=== PATIENT | female | born 1935 ===

== ENCOUNTER 2019-01-09 15:10 | Inpatient (IN) | payer MEDICARE, BC ==
[2019-01-09] MEDS ORDERED: LOPERAMIDE 2 MG CAP PO PRN (19:24)
[2019-01-09] MEDS ORDERED: traZODone HCL 50 MG TAB PO PRN (19:32)
[2019-01-09] MEDS ORDERED: tiZANidine 4 MG TAB PO PRN (19:32)
[2019-01-09 20:11] LABS: Basophils % (A) 0 %; Eosinophils # (A) 0.2 k/uL (0-0.7); Eosinophils % (A) 1 %; HCT 38.6 % (34.0-46.0); HGB 12.7 gm/dL (11.4-16.0); Lymphocytes # (A) 2.2 k/uL (1.0-4.8); Lymphocytes % (A) 12 %; MCH 30.3 pg (25.0-35.0); MCHC 32.9 g/dL (31.0-37.0); MCV 91.9 fL (80.0-100.0); Mean Platelet Volume 5.9; Monocytes # (A) 0.5 k/uL (0-1.0); Monocytes % (A) 3 %; Neutrophils # (A) 15.5 k/uL (1.3-7.7); Neutrophils % (A) 84 %; Platelet Count 313 k/uL (150-450); RDW 13.9 % (11.5-15.5); WBC 18.5 k/uL (3.8-10.6)
[2019-01-09 20:16] LABS: INR 0.9 (<1.2); Prothrombin Time 10.2 sec (9.0-12.0)
[2019-01-09 20:17] LABS: Calcium 8.7 mg/dL (8.4-10.2); Potassium 3.8 mmol/L (3.5-5.1)
[2019-01-09] MEDS: METOPROLOL SUCCINATE (ER) 50 MG TAB.ER.24H PO SCH (21:27)
[2019-01-09] MEDS: NIACIN TR 500 MG CAPLET PO SCH (21:27)
[2019-01-09] MEDS: PIPERACILLIN-TAZOBACTAM 3.375 GM in SODIUM CHLORIDE 0.9% 100 ML IVPB SCH (23:49)
[2019-01-10] MEDS: LEVOTHYROXINE 75 MCG TAB PO SCH (05:25)
[2019-01-10] MEDS: amLODIPine 5 MG TAB PO SCH (07:52)
[2019-01-10] MEDS: CYANOCOBALAMIN 500 MCG TAB PO SCH (07:52)
[2019-01-10] MEDS: PANTOPRAZOLE 40 MG TABLET PO SCH (07:52)
[2019-01-10] MEDS: LISINOPRIL 20 MG TAB PO SCH (07:52)
[2019-01-10] MEDS: FENOFIBRATE 54 MG TAB PO SCH (07:53)
[2019-01-10] MEDS: PIPERACILLIN-TAZOBACTAM 3.375 GM in SODIUM CHLORIDE 0.9% 100 ML IVPB SCH ×2 (07:53→16:02)
[2019-01-10 10:26] LABS: Potassium 3.6 mmol/L (3.5-5.1)
[2019-01-10 10:35] LABS: Basophils # (A) 0.1 k/uL (0-0.2); Basophils % (A) 1 %; Eosinophils # (A) 0.3 k/uL (0-0.7); Eosinophils % (A) 3 %; HGB 12.9 gm/dL (11.4-16.0); Hypochromasia Slight; Lymphocytes # (A) 1.9 k/uL (1.0-4.8); Lymphocytes % (A) 18 %; MCH 30.5 pg (25.0-35.0); MCHC 32.2 g/dL (31.0-37.0); MCV 94.6 fL (80.0-100.0); Mean Platelet Volume 6.4; Monocytes # (A) 0.3 k/uL (0-1.0); Monocytes % (A) 3 %; Neutrophils # (A) 8.2 k/uL (1.3-7.7); Neutrophils % (A) 75 %; Platelet Count 365 k/uL (150-450); RBC 4.23 m/uL (3.80-5.40); RDW 13.9 % (11.5-15.5)
[2019-01-10 11:55] VITALS: BMI 32.1
--- NOTE | 2019-01-10 16:54 | P.HPIM ---
History of Present Illness H&P Date: 01/10/19 Chief Complaint: Nausea and vomiting Patient is a 83-year-old female with a known history of hypertension, hyperlipidemia, history of colon cancer status post bowel resection at age 25 in 1994, initially presents to the [facility] with the complaints of nausea vomiting and diarrhea for the past 2 days prior to admission. Patient was also having pain across the upper abdomen. Patient was also feeling dizzy on admission. Patient was recently treated for vertigo with steroid tapering course which she just Finished a day before her symptoms started. Denied any blood in the vomitus. No dark stools. No dysuria or hematuria. No complaints of chest pain or shortness of breath. No headache or dizziness or lightheadedness. Patient had CT of the abdomen and pelvis done at [facility] showed colitis all of the colon and diarrhea. WBC 32.62, lactic acid 3.[address] head showed no acute intracranial process. Patient was eventually transferred to [facility] for further management and GI evaluation. Review of Systems Constitutional: Patient denies any fever or chills . No generalized weakness or weight loss. Abdomen: Patient does have nausea vomiting and abdominal discomfort. Cardiovascular: Patient denies any chest pain or short of breath no palpitations. Respiratory: patient denied any cough is from production. No shortness of breath Neurologic: Patient denied any numbness or tingling headache. Musculoskeletal: Patient denies any complaints of joint swelling or deformity. Skin: Negative Psychiatric: Negative Endocrine: No heat or cold intolerance. No recent weight gain. Genitourinary: No dysuria or hematuria. All other 14 point ROS negative except the above Past Medical History Past Medical History: GERD/Reflux, Hyperlipidemia, Hypertension, Thyroid Disorder Additional Past Medical History / Comment(s): glaucoma, carpal tunnel History of Any Multi-Drug Resistant Organisms: None Reported Past Surgical History: Appendectomy, Cholecystectomy, Tonsillectomy Additional Past Surgical History / Comment(s): pt states she has had half her bowels removed 26 years ago, due to colon cancer, bilateral cataract surgery Past Anesthesia/Blood Transfusion Reactions: No Reported Reaction Past Psychological History: No Psychological Hx Reported Additional Psychological History / Comment(s): since July 2016. Lives independently. No animals in the home. Used to work in retail. No experience, international travel or other travels as this time. 3 adult children who are very involved with her daughter who lives close by. Lifelong nonsmoker no significant alcohol use or recreational drug use. Smoking Status: Never smoker Past Alcohol Use History: None Reported Past Drug Use History: None Reported - Past Family History Mother Family Medical History: Myocardial Infarction ([place]) Father Additional Family Medical History / Comment(s): "old age, fall" Medications and Allergies Home Medications Medication Instructions Recorded Confirmed Type Aspirin [Adult Low Dose Aspirin EC] 81 mg PO DAILY 03/06/17 01/09/19 History Cyanocobalamin (Vitamin B-12) 1,000 mcg PO DAILY 03/06/17 01/09/19 History [Vitamin B-12] Fenofibrate Nanocrystallized 48 mg PO DAILY 03/06/17 01/09/19 History [Tricor] Levothyroxine Sodium [Synthroid] 75 mcg PO DAILY 03/06/17 01/09/19 History Loperamide HCl [Loperamide] 2 mg PO AC-TID 03/06/17 01/09/19 History Multivitamin/Iron/Folic Acid 1 tab PO DAILY 03/06/17 01/09/19 History [Centrum Women Tablet] Niacin 500 mg PO HS 03/06/17 01/09/19 History Omeprazole 20 mg PO DAILY 03/06/17 01/09/19 History C,E,Zinc,Copper 11/Gihxi4u/Lut 1 cap PO DAILY 01/09/19 01/09/19 History [Ocuvite Adult 50 Plus Softgel] Lisinopril 20 mg PO DAILY 01/09/19 01/09/19 History Metoprolol Succinate (ER) [Toprol 50 mg PO DAILY 01/09/19 01/09/19 History Xl] Potassium 99 mg PO DAILY 01/09/19 01/09/19 History Ranitidine HCl [Zantac] 300 mg PO DAILY 01/09/19 01/09/19 History amLODIPine [Norvasc] 5 mg PO DAILY 01/09/19 01/09/19 History tiZANidine [Zanaflex] 2 mg PO TID 01/09/19 01/09/19 History traZODone HCL 50 mg PO HS 01/09/19 01/09/19 History Allergies Allergy/AdvReac Type Severity Reaction Status Date / Time No Known Allergies Allergy Verified 01/09/19 19:53 Physical Exam Vitals: Vital Signs Temp Pulse Resp BP Pulse Ox 01/10/19 04:55 97.9 F 65 16 129/66 96 01/09/19 20:00 97.6 F 76 16 156/72 99 01/09/19 17:45 97.9 F 84 16 155/79 98 Intake and Output 01/09/19 01/10/19 01/10/19 22:59 06:59 14:59 Output Total 1 Balance -1 Output: Stool 1 Other: Voiding Method Toilet Toilet # Voids 1 2 2 # Bowel Movements 1 Weight 72.1 kg PHYSICAL EXAMINATION: Patient is lying in the bed comfortably, no acute distress, awake alert and oriented.. HEENT: Normocephalic. Neck is supple. Pupils reactive. Nostrils clear. Oral cavity is moist. Ears reveal no drainage. Neck reveals no JVD, carotid bruits, or thyromegaly. CHEST EXAMINATION: Trachea is central. Symmetrical expansion. Lung aguero clear to auscultation and percussion. CARDIAC: Normal S1, S2 with no gallops. No murmurs ABDOMEN: Soft. Bowel sounds normal. No organomegaly. No abdominal bruits. Extremities: reveal no edema. No clubbing or cyanosis Neurologically awake, alert, oriented x3 with well-coordinated movements. No focal deficits noted Skin: No rash or skin lesions. Psychiatric: Coperative. Nonsuicidal Musculoskeletal: No joint swelling or deformity. Normal range of motion. Results CBC & Chem 7: 01/10/19 09:18 01/10/19 09:18 Labs: Abnormal Lab Results - Last 24 Hours (Table) 01/09/19 01/10/19 01/10/19 Range/Units 19:46 09:18 09:18 WBC 18.5 H 11.0 H (3.8-10.6) k/uL Neutrophils # 15.5 H 8.2 H (1.3-7.7) k/uL Carbon Dioxide 21 L (22-30) mmol/L Glucose 102 H (74-99) mg/dL Thrombosis Risk Factor Assmnt - DVT/VTE Prophylaxis DVT/VTE Prophylaxis: Pharmacologic Prophylaxis ordered - Choose All That Apply Any of the Below Risk Factors Present?: Yes Other Risk Factors: Yes Each Risk Factor Represents 3 Points: Age 75 years or older Thrombosis Risk Factor Assessment Total Risk Factor Score: 3 Thrombosis Risk Factor Assessment Level: Moderate Risk Assessment and Plan Assessment: Acute colitis possible infectious Severe leukocytosis due to infection and recent use of steroids Intractable nausea and vomiting and diarrhea. Improving now Hypertension Hypothyroidism Hyperlipidemia GERD History of colon cancer status post resection Chronic diarrhea secondary to history of colon resection DVT prophylaxis Plan: Patient will be continued on IV hydration. Antibiotics in the form of Zosyn and leukocytosis is improving. GI was consulted for evaluation. Continue to monitor closely and further recommendations based on the clinical course. Anticipate discharge next 24 hours. Time with Patient: Greater than 30
[2019-01-10] MEDS ORDERED: LOPERAMIDE 2 MG CAP PO SCH (17:00)
[2019-01-10] MEDS: METOPROLOL SUCCINATE (ER) 50 MG TAB.ER.24H PO SCH (21:34)
[2019-01-10] MEDS: LOPERAMIDE 2 MG CAP PO SCH (21:34)
[2019-01-10] MEDS: NIACIN TR 500 MG CAPLET PO SCH (21:34)
--- NOTE | 2019-01-10 22:05 | P.CONS ---
History of Present Illness - Reason for Consult Consult date: 01/10/19 Colitis Requesting physician: Evert Lagos - Chief Complaint Nausea, vomiting, diarrhea - History of Present Illness 83-year-old female with a medical history significant for hypertension, hyperlipidemia, colon cancer status post resection in 1994 who presented to the hospital with complaints of nausea, vomiting and diarrhea and was transferred to [facility] for further evaluation. The patient reports approximately 2 days of symptoms prior to presentation. She reports waking up nauseated and having approximately 4-5 episodes of nonbloody emesis, consisting mainly of food which she had eaten. The patient reports an uncomfortable feeling in the epigastric region of her abdomen but denies any overt abdominal pain. She also reports multiple episodes of loose watery stool. She states that at baseline she has had urgency with bowel movements since her colonic resection however the symptoms were all new and rapid in onset. She denied any fevers or chills. She denies any sick contacts, recent antibiotics or new medications, but was treated with a steroid taper for vertigo. Laboratory evaluation after transfer was significant for a WBC 18, hemoglobin 12.7, platelet count 313,000, creatinine 0.91. The patient had a computed tomography scan prior to her transfer which was significant for colitis, and also had a significant leukocytosis with a WBC of 32 and lactic acid of 3.2 prior to her transfer. Review of Systems REVIEW OF SYSTEMS: CONSTITUTIONAL: Denies any fevers, chills, weight change or fatigue. CARDIOVASCULAR: Denies any chest pain, palpitations high or low blood pressures RESPIRATORY: Denies any shortness of breath, hemoptysis or cough. GENITOURINARY: No dysuria or hematuria. MUSCULOSKELETAL: No weakness reported. SKIN: Denies any new rashes or lesions, jaundice or pallor. PSYCHIATRIC: Denies any depression or anxiety. NEUROLOGY: Denies headache, denies any new focal deficits, episodes of vertigo. EARS/NOSE/THROAT: No recent hearing change, congestion, nasal discharge or sore throat. EYES: No pain in eyes, discharge or change in vision. GASTROINTESTINAL: As per HPI. Past Medical History Past Medical History: GERD/Reflux, Hyperlipidemia, Hypertension, Thyroid Disorder Additional Past Medical History / Comment(s): glaucoma, carpal tunnel History of Any Multi-Drug Resistant Organisms: None Reported Past Surgical History: Appendectomy, Cholecystectomy, Tonsillectomy Additional Past Surgical History / Comment(s): pt states she has had half her bowels removed 26 years ago, due to colon cancer, bilateral cataract surgery Past Anesthesia/Blood Transfusion Reactions: No Reported Reaction Past Psychological History: No Psychological Hx Reported Additional Psychological History / Comment(s): since July 2016. Lives independently. No animals in the home. Used to work in retail. No experience, international travel or other travels as this time. 3 adult children who are very involved with her daughter who lives close by. Lifelong nonsmoker no significant alcohol use or recreational drug use. Smoking Status: Never smoker Past Alcohol Use History: None Reported Past Drug Use History: None Reported - Past Family History Mother Family Medical History: Myocardial Infarction ([place]) Father Additional Family Medical History / Comment(s): "old age, fall" Medications and Allergies Home Medications Medication Instructions Recorded Confirmed Type Aspirin [Adult Low Dose Aspirin EC] 81 mg PO DAILY 03/06/17 01/09/19 History Cyanocobalamin (Vitamin B-12) 1,000 mcg PO DAILY 03/06/17 01/09/19 History [Vitamin B-12] Fenofibrate Nanocrystallized 48 mg PO DAILY 03/06/17 01/09/19 History [Tricor] Levothyroxine Sodium [Synthroid] 75 mcg PO DAILY 03/06/17 01/09/19 History Loperamide HCl [Loperamide] 2 mg PO AC-TID 03/06/17 01/09/19 History Multivitamin/Iron/Folic Acid 1 tab PO DAILY 03/06/17 01/09/19 History [Centrum Women Tablet] Niacin 500 mg PO HS 03/06/17 01/09/19 History Omeprazole 20 mg PO DAILY 03/06/17 01/09/19 History C,E,Zinc,Copper 11/Ekgzo4b/Lut 1 cap PO DAILY 01/09/19 01/09/19 History [Ocuvite Adult 50 Plus Softgel] Lisinopril 20 mg PO DAILY 01/09/19 01/09/19 History Metoprolol Succinate (ER) [Toprol 50 mg PO DAILY 01/09/19 01/09/19 History Xl] Potassium 99 mg PO DAILY 01/09/19 01/09/19 History Ranitidine HCl [Zantac] 300 mg PO DAILY 01/09/19 01/09/19 History amLODIPine [Norvasc] 5 mg PO DAILY 01/09/19 01/09/19 History tiZANidine [Zanaflex] 2 mg PO TID 01/09/19 01/09/19 History traZODone HCL 50 mg PO HS 01/09/19 01/09/19 History Allergies Allergy/AdvReac Type Severity Reaction Status Date / Time No Known Allergies Allergy Verified 01/09/19 19:53 Physical Exam Vitals: Vital Signs Temp Pulse Resp BP Pulse Ox 01/10/19 14:45 61 16 01/10/19 14:24 98.0 F 61 16 139/66 98 01/10/19 04:55 97.9 F 65 16 129/66 96 01/09/19 20:00 97.6 F 76 16 156/72 99 Intake and Output 01/10/19 01/10/19 01/10/19 06:59 14:59 22:59 Intake Total 540 840 Output Total 2 Balance 538 840 Intake: Oral 540 840 Output: Stool 2 Other: Voiding Method Toilet # Voids 2 2 1 # Bowel Movements 1 Weight 72.1 kg On physical examination, patient appears comfortable in no apparent distress. HEAD: Normocephalic, atraumatic. EYES: No scleral icterus. No conjunctival injection. MOUTH: No lesions, tongue midline. NECK: Trachea midline, no gross abnormalities. CHEST: Clear to auscultation with no wheezing or rhonchi appreciated. HEART: S1-S2 appreciated. ABDOMEN: Soft, mildly tender to palpation predominantly in the epigastric region of her abdomen. Bowel sounds are positive. No organomegaly. No guarding or rigidity. EXTREMITIES: No pedal edema. SKIN: No rashes, no jaundice. NEUROLOGIC: Alert and oriented x3. No focal deficits. Results CBC & Chem 7: 01/10/19 09:18 01/10/19 09:18 Labs: Abnormal Lab Results - Last 24 Hours (Table) 01/09/19 01/10/19 01/10/19 Range/Units 19:46 09:18 09:18 WBC 18.5 H 11.0 H (3.8-10.6) k/uL Neutrophils # 15.5 H 8.2 H (1.3-7.7) k/uL Carbon Dioxide 21 L (22-30) mmol/L Glucose 102 H (74-99) mg/dL CT scan - abdomen: report reviewed (Computed tomography scan of the abdomen consistent with colitis) Assessment and Plan (1) Colitis Narrative/Plan: 83-year-old female with multiple episodes of loose watery stool and nausea and vomiting with CT scans suggestive of colitis and significant leukocytosis who presents for further evaluation. Patient denies any recent antibiotics, new medications, or sick contacts. No travel or unusual foods reported. Symptoms acute nature approximately 2 days' duration prior to her presentation for further evaluation. Suspicion is for a bacterial or viral gastroenteritis, less likely ischemic or inflammatory in nature. Current Visit: Yes Status: Acute Code(s): K52.9 - NONINFECTIVE GASTROENTER ITIS AND COLITIS, UNSPECIFIED SNOMED Code(s): 31404083 (2) Leukocytosis Current Visit: Yes Status: Acute Code(s): D72.829 - ELEVATED WHITE BLOOD CELL COUNT, UNSPECIFIED SNOMED Code(s): 494731366 Plan: Supportive care Okay for liquid diet, advance to low fiber/low lactose as tolerated Continue to monitor CBC, CMP, clinically Stool studies including EIA for Clostridium difficile, culture, parasites ordered Okay for antibiotic therapy at this time Okay for antidiarrheal medicine at this time Continue fluid hydration Thank you for allowing us to participate in the care of the patient we will continue to follow
[2019-01-11] MEDS: PIPERACILLIN-TAZOBACTAM 3.375 GM in SODIUM CHLORIDE 0.9% 100 ML IVPB SCH ×2 (00:20→08:56)
[2019-01-11] MEDS: LEVOTHYROXINE 75 MCG TAB PO SCH (05:39)
[2019-01-11] MEDS: LOPERAMIDE 2 MG CAP PO SCH ×2 (08:57→14:07)
[2019-01-11] MEDS: PANTOPRAZOLE 40 MG TABLET PO SCH (08:57)
[2019-01-11] MEDS: amLODIPine 5 MG TAB PO SCH (08:57)
[2019-01-11] MEDS: LISINOPRIL 20 MG TAB PO SCH (08:57)
[2019-01-11] MEDS: CYANOCOBALAMIN 500 MCG TAB PO SCH (08:57)
[2019-01-11 13:23] VITALS: BP 111/70; PULSE 71; RESP 16; TEMP 98.3
[2019-01-11] MEDS: FENOFIBRATE 54 MG TAB PO SCH (14:06)
--- NOTE | 2019-01-11 15:24 | P.DS ---
Providers Date of admission: 01/09/19 18:10 Expected date of discharge: 01/11/19 Attending physician: Evert Lagos Consults: 01/09/19 18:49 Consult Physician Urgent Consulting Provider: Cristina Fishman Consult Reason/Comments: colitis Do you want consulting provider notified?: Yes Primary care physician: [facility] Course: Final diagnosis Acute colitis possible infectious Severe leukocytosis due to infection Intractable nausea and vomiting and diarrhea. Hypertension Hypothyroidism Hyperlipidemia GERD History of colon cancer status post resection Chronic diarrhea secondary to history of colon resection DVT prophylaxis Discharge disposition Patient is being discharged in a stable condition with guarded prognosis to home and will follow-up with her primary care provider upon discharge. Patient will complete a short course of oral antibiotics upon discharge in the form of Levaquin and Flagyl for the next 3 days. Total time taken is 35 minutes. History of present illness This is a pleasant 83-year-old female who was transferred from [facility] with complaints of nausea, vomiting, and diarrhea and was being closely monitored. Patient had a CAT scan that showed colitis. During hospitalization patient had no nausea or vomiting and continued to have diarrhea and loose stools which is her baseline she states. Stool samples were sent and was negative for C. diff. During hospitalization patient did have an elevated white blood count and is been trending down. Patient will need repeat labs in 2-3 days to follow the trend. Patient will follow-up with her primary care provider Dr. Causey upon discharge. Patient was seen by gastroenterology and recommending supportive care and advancing diet as tolerated and to continue fluid hydration. Currently patient's condition is stable with much improvement and would like to go home today. Patient was just advanced in diet and tolerated well. Patient instructed to continue advancing slowly as tolerated in the outpatient setting. Patient denies any chest pain, shortness of breath, or palpitations at this time. Patient has been afebrile. Patient denies any nausea or vomiting and is tolerating diet. Guarded prognosis. On exam vital signs are stable. There is 98.3F, pulse is 71, respirations are 16, blood pressure is 111/70, oxygen saturation is 99% on room air. Cardio S1- S2 are present. Respiratory system shows clear to auscultation. Abdomen is soft and non-tender. Nervous system shows no focal deficits and gait is steady. Please refer to medication reconciliation sheet for a list of medications. Patient Condition at Discharge: Fair Plan - Discharge Summary Discharge Rx Participant: No New Discharge Prescriptions: Continue Omeprazole 20 mg PO DAILY Levothyroxine Sodium [Synthroid] 75 mcg PO DAILY Fenofibrate Nanocrystallized [Tricor] 48 mg PO DAILY Niacin 500 mg PO HS Multivitamin/Iron/Folic Acid [Centrum Women Tablet] 1 tab PO DAILY Loperamide HCl [Loperamide] 2 mg PO AC-TID Cyanocobalamin (Vitamin B-12) [Vitamin B-12] 1,000 mcg PO DAILY Aspirin [Adult Low Dose Aspirin EC] 81 mg PO DAILY traZODone HCL 50 mg PO HS C,E,Zinc,Copper 11/Geycz4b/Lut [Ocuvite Adult 50 Plus Softgel] 1 cap PO DAILY tiZANidine [Zanaflex] 2 mg PO TID amLODIPine [Norvasc] 5 mg PO DAILY Metoprolol Succinate (ER) [Toprol XL] 50 mg PO DAILY Lisinopril 20 mg PO DAILY Potassium 99 mg PO DAILY Discontinued Ranitidine HCl [Zantac] 300 mg PO DAILY Discharge Medication List Aspirin [Adult Low Dose Aspirin EC] 81 mg PO DAILY 03/06/17 [History] Cyanocobalamin (Vitamin B-12) [Vitamin B-12] 1,000 mcg PO DAILY 03/06/17 [History] Fenofibrate Nanocrystallized [Tricor] 48 mg PO DAILY 03/06/17 [History] Levothyroxine Sodium [Synthroid] 75 mcg PO DAILY 03/06/17 [History] Loperamide HCl [Loperamide] 2 mg PO AC-TID 03/06/17 [History] Multivitamin/Iron/Folic Acid [Centrum Women Tablet] 1 tab PO DAILY 03/06/17 [History] Niacin 500 mg PO HS 03/06/17 [History] Omeprazole 20 mg PO DAILY 03/06/17 [History] C,E,Zinc,Copper 11/Xkxbg2s/Lut [Ocuvite Adult 50 Plus Softgel] 1 cap PO DAILY 01/09/19 [History] Lisinopril 20 mg PO DAILY 01/09/19 [History] Metoprolol Succinate (ER) [Toprol XL] 50 mg PO DAILY 01/09/19 [History] Potassium 99 mg PO DAILY 01/09/19 [History] amLODIPine [Norvasc] 5 mg PO DAILY 01/09/19 [History] tiZANidine [Zanaflex] 2 mg PO TID 01/09/19 [History] traZODone HCL 50 mg PO HS 01/09/19 [History] Follow up Appointment(s)/Referral(s): Dino Causey MD [REFERRING] - 01/19/19 3:00 pm Ambulatory/Diagnostic Orders: Complete Blood Count w/diff [LAB.AMB] Time Frame: 2 Days, Location: None Selected Patient Instructions/Handouts: Colitis (ED) Discharge Disposition: HOME SELF-CARE
== END 2019-01-11 15:18 | disposition home or self-care (01) | DRG 392 ==
LOC: 4MS4W 18:10
PROVIDERS: ADMIT Internal Medicine; ATTEND Internal Medicine
DX: A09 Infectious gastroenteritis and colitis, unspecified (principal); E03.9 Hypothyroidism, unspecified; E78.5 Hyperlipidemia, unspecified; H40.9 Unspecified glaucoma; I10 Essential (primary) hypertension; K21.9 Gastro-esophageal reflux disease without esophagitis; G56.00 Carpal tunnel syndrome, unspecified upper limb; D72.829 Elevated white blood cell count, unspecified; T38.0X5A Adverse effect of glucocorticoids and synthetic analogues, initial encounter; Z79.82 Long term (current) use of aspirin; Z79.890 Hormone replacement therapy; Z79.899 Other long term (current) drug therapy; Z85.038 Personal history of other malignant neoplasm of large intestine; Z90.49 Acquired absence of other specified parts of digestive tract; Z98.42 Cataract extraction status, left eye; Z98.41 Cataract extraction status, right eye; Z96.1 Presence of intraocular lens; Z82.49 Family history of ischemic heart disease and other diseases of the circulatory system
CPT/HCPCS: 80048; 83630; 85025; 85610; 87045; 87046; 87324; 87328; 87329